=== PATIENT | female | born 1980 | race Caucasian/White ===

== ENCOUNTER 2021-06-21 18:11 | Emergency (ER) | payer OTHER, SELFPAY ==
[2021-06-21 18:12] VITALS: BP 148/82; PULSE 89; RESP 16; TEMP 35.6; O2SAT 97; BMI 20.6
--- NOTE | 2021-06-21 18:31 | RAD_ITS ---
STUDY: X-RAY CHEST REASON FOR EXAM: Female, 41 years old. SOB TECHNIQUE: Frontal portable view of the chest COMPARISON: Report from September, no images for comparison. FINDINGS: The lungs are clear and hyperinflated.. There is no demonstrated pleural abnormality. Normal size heart. Normal mediastinum and donald. Normal visualized pulmonary arteries. Normal visualized aortic arch and descending thoracic aorta. Normal visualized thoracic spine. Normal visualized ribs, clavicles, and shoulders. There is no demonstrated abnormality of the visualized soft tissue structures of the upper abdomen. RAD/Chest 1 View IMPRESSION: No acute abnormality. Hyperinflation, probably emphysema. Electronically Signed: Tj Whiteside MD at 19:12 EST Tel , Service support ,
[2021-06-21 20:54] VITALS: BP 141/95; PULSE 72; RESP 17; O2SAT 95
[2021-06-21 21:10] VITALS: O2SAT 97
--- NOTE | 2021-06-21 21:43 | ED.VIS.DYS ---
HPI History of Present Illness Chief Complaint: Shortness of Breath Narrative Narrative: Patient presenting with epigastric fullness. She states she has had this for about a week. She does not have any actual chest pain or shortness of breath. She actually states she has been running and exercising. She does not have a fever, chills, cough or cold symptoms. She states she has no medical problems. He was recently started on control. Patient states that the symptoms seem to have come after she started the medication. Patient called her primary care's office who told her to go to the urgent care to be evaluated. There they did 1 test a D-dimer which was elevated and sent her to the emergency room. Patient has no risk factors for PE other than control. Again she is not having any chest pain or shortness of breath. No calf pain or swelling. PFSH PFSH Medical History no medical history Home Medications L norgest/e.estradiol-e.estrad [Seasonique] 1 tab DAILY 06/21/21 [History Last Taken Unknown] loratadine 10 mg DAILY 06/21/21 [History Last Taken Unknown] multivitamin cap 06/21/21 [History Last Taken Unknown] Allergy/AdvReac Type Severity Reaction Status Date / Time iodine Allergy Rash Verified 06/21/21 18:12 Surgical History no surgical history Social History Smoking Status: Never smoker ROS ROS ED Constitutional Constitutional ED: Denies chills or fever(s) Eyes Eyes: Denies blurry vision or diplopia ENT ENT ED: Denies rhinorrhea or sore throat Cardiovascular Cardiovascular: Denies chest pain or palpitations Respiratory/Chest Respiratory/Chest: Denies cough or dyspnea Gastrointestinal Gastrointestinal: Reports abdominal pain; Denies nausea or vomiting Genitourinary Genitourinary ED: Denies dysuria or hematuria Musculoskeletal Musculoskeletal: Denies arthralgias or myalgias Integumentary Denies rash Neurologic Neurologic: Denies headache(s) or paresthesias EXAM Physical Exam Const Vital Signs: 06/21/21 18:12 06/21/21 20:54 06/21/21 21:10 Temperature 96.1 F L Temperature Source Temporal Pulse Rate 89 72 Respiratory Rate 16 17 Respiratory Effort Short of Breath Respiratory Depth Normal Respiratory Pattern Normal Blood Pressure 148/82 H 141/95 H Blood Pressure Mean 104 110 Pulse Ox 97 95 Oxygen Delivery Method Room Air Room Air Room Air Positive well nourished General Appearance ED: NAD; Negative for pallor HEENT Reports moist mucous membranes atraumatic Eyes PERRL and EOMs intact bilaterally Resp normal respiratory effort and clear to auscultation bilaterally Auscultation: Negative for rales, rhonchi or wheezes Cardio regular rate and regular rhythm GI GI Narrative: Mild epigastric tenderness. Abdomen nonperitoneal. Extremity normal to inspection Psych mental status grossly normal Thought Process: normal thought process Skin General Skin Exam: Negative for jaundice or pallor MDM MDM MDM Narrative Medical decision making narrative: Patient presented with epigastric fullness. She had an outpatient D-dimer performed by urgent care because she is on control. She does not actually have any chest pain or shortness of breath. Patient states that she is actually been running and exercising. She has no cardiac risk factors. Her only PE risk factor is control pill. I cannot use the PERC criteria for her however the Wells criteria she would be low risk. Patient's physical exam is completely normal. She is not tachycardic, tachypneic, hypoxic. She does not want to get a CAT scan of her chest. We did discuss the Wells criteria. She states that she does not think she needs any more work-up and she wants to go home and I do think this is reasonable. She did have a chest x-ray which on my interpretation is no acute abnormality. The radiologist does agree. Patient was discharged home in stable condition. Impression: 1. Epigastric pain Radiography Diagnostic Testing: Clinical Impression(s) from Imaging Studies Chest X-Ray 06/21/21 18:31 IMPRESSION: No acute abnormality. Hyperinflation, probably emphysema. Electronically Signed: Tj Whiteside MD at 19:12 EST Tel , Service support , Discharge Plan Triage Chief Complaint: Shortness of Breath ED Provider: Shakir Mitchell Dx/Rx/DC Orders Instructions: ED Epigastric Pain Uncertain Cause Prescriptions: No Action multivitamin Capsule RF: 0 L norgest/e.estradiol-e.estrad [Seasonique] 0.15 mg-30 mcg (84)/10 mcg (7) Tablets,Dose Pack,3 Month 1 tab DAILY RF: 0 loratadine 10 mg Capsule 10 mg DAILY RF: 0 Primary Care Provider: Seamus Elder Referrals: Seamus Elder DO [Primary Care Provider] - Disposition Disposition: Home, Self Care
[2021-06-21 22:13] VITALS: BP 124/74
[2021-06-21 22:14] VITALS: O2SAT 98
== END 2021-06-21 22:14 | disposition home or self-care (01) ==
LOC: ED 21:54
PROVIDERS: Emergency Provider Student in an Organized Health Care Education/Training Program; PCP Student in an Organized Health Care Education/Training Program
DX: R10.13 Epigastric pain (principal); R14.0 Abdominal distension (gaseous); Z20.822 Contact with and (suspected) exposure to COVID-19; Z79.3 Long term (current) use of hormonal contraceptives; Z79.899 Other long term (current) drug therapy
CPT/HCPCS: 71045; 87426; 99282

== ENCOUNTER → 2021-06-21 | Outpatient (CLI) | payer OTHER, SELFPAY ==
[2021-06-21 16:49] LABS: D-Dimer Quantitative (DVT/PE) 0.86 FEU/ug/m (0.27-0.49)
== END | disposition home or self-care (01) ==
PROVIDERS: PCP Student in an Organized Health Care Education/Training Program; Referring Provider Emergency Medicine; Visit Provider Emergency Medicine
DX: R06.02 Shortness of breath (principal)
CPT/HCPCS: 85379